=== PATIENT | male | born 1955 | race Caucasian/White ===

== ENCOUNTER 2021-06-26 10:30 | Day surgery (SDC) | payer MEDICARE ==
[2021-06-26] MEDS ORDERED: CEFAZOLIN 2 GM-D5W BAG** 2 GM/50 ML ML IV SCH (11:00)
[2021-06-26] MEDS ORDERED: Lactated Ringers 1,000 ML IV SCH (11:00)
[2021-06-26] MEDS ORDERED: CEFAZOLIN 2 GM-D5W BAG** 2 GM/50 ML ML IV ONE (11:14)
[2021-06-26] MEDS ORDERED: Lactated Ringers 1,000 ML IV ONE ×2 (11:15→14:09)
--- NOTE | 2021-06-26 12:48 | HP ---
DATE OF SURGERY: 06/26/2021 HISTORY OF PRESENT ILLNESS: The patient is a 65-year-old who had a large nodule left ear that has been going on for some time. He is in need of incision and reconstruction of that area. PAST MEDICAL HISTORY: He denied any chronic illnesses. PAST SURGICAL HISTORY: He denied prior surgery. MEDICATIONS: Vitamin B12, fish oil, [place]-3, trazodone. ALLERGIES: DOXYCYCLINE. FAMILY HISTORY: Negative in regards to this problem. SOCIAL HISTORY: Pack per day smoker, denies alcohol abuse. REVIEW OF SYSTEMS: Fourteen systems reviewed. No chest pain or palpitations. Other systems negative or noncontributory as above and per preadmission questionnaire. PHYSICAL EXAMINATION: GENERAL: No acute distress. HEENT: Sclerae nonicteric. Ear has a large lesion on his left ear nonhealing. NECK: No JVD. CHEST: Breath sounds symmetrical. CVS: Regular rate and rhythm. ABDOMEN: Soft. No peritoneal signs. He does have an inguinal hernia but he is not interested in any of repair at this time. EXTREMITIES: No edema. NEURO: Alert. PSYCH: Appropriate mood and affect. IMPRESSION: Enlarging nonhealing ear lesion. He needs excision and biopsy with auriculoplasty and possible skin graft of this nonhealed lesion of left ear of indeterminate behavior. Risks and benefits explained in detail including but not limited to bleeding, infection, risk of nonhealing of the wound possibly requiring other procedure, general risk of anesthesia or sedation but not limited to, consent obtained, will proceed as an outpatient. General risk of anesthesia, deep vein thrombosis, pulmonary embolism or pneumonia but not limited to, possibility of cancer, involved margins possibly requiring other procedures and/or treatments.
[2021-06-26] MEDS ORDERED: DIPRIVAN 200 MG/20 ML IV ONE (13:37)
[2021-06-26] MEDS ORDERED: SUBLIMAZE 100 MCG/2 ML ONE ×2 (13:37→14:53)
[2021-06-26] MEDS ORDERED: Versed 2 MG/2 ML Injection ONE (13:37)
[2021-06-26] MEDS ORDERED: Sensorcaine 0.25% 10 ML ONE (14:09)
[2021-06-26] MEDS ORDERED: Ephedrine Sulfate 50 MG/ML ONE (14:16)
[2021-06-26] MEDS ORDERED: BACIGUENT 30 GM ONE (14:21)
[2021-06-26] MEDS ORDERED: APRESOLINE 20 MG/ML INJ IV ONE (15:43)
[2021-06-26 16:17] VITALS: BP 169/89; PULSE 77; O2SAT 99
--- NOTE | 2021-06-27 07:51 | OP ---
SURGERY DATE/TIME: 06/26/2021 1335 PREOPERATIVE DIAGNOSIS: Nonhealing ulcerated lesion indeterminate behavior left ear. POSTOPERATIVE DIAGNOSIS: Nonhealing ulcerated lesion indeterminate behavior left ear, path pending. PROCEDURE: Excision and biopsy wedge left ear nonhealing indeterminate behavior lesion with reconstruction, complex closure with auriculoplasty. SURGEON: Dr. Rubén Barnhart. ANESTHESIA: General. ESTIMATED BLOOD LOSS: Minimal. INDICATIONS: As noted above. Risks and benefits explained in detail and not limited to and consent obtained. The site had been confirmed in the preoperative holding area. DESCRIPTION OF PROCEDURE AND FINDINGS: The patient is taken to the operating room. General anesthesia introduced. He is prepped and draped in usual sterile fashion. After official time out and no disagreement with planned procedure, marking out to normal appearing skin as he had available in this large lesion left ear. It was felt best to do a wedge-type excision necessary sacrifice a portion of the cartilage. It was not felt that a skin graft would heal on this. Therefore it was carefully excised full thickness and passed off. It measured about 1.5 cm with the margins and passed off for pathology. It was necessary to trim the cartilage in auriculoplasty fashion and the cartilage is brought back together with interrupted 4-0 Vicryl bringing the cartilage back together and the skin trimming the lobe discrepancy in size to match up better. The skin was closed with running interrupted 6-0 and 5-0 Prolene. Good hemostasis noted. Some local was injected posteriorly. Good hemostasis noted. Some antibiotic ointment and sterile dressing applied. The patient tolerated the procedure well. There were no immediate complications. There was no family available to discuss the findings with at this time.
== END 2021-06-26 16:25 | disposition home or self-care (01) ==
LOC: SDC 10:30
PROVIDERS: ATTEND Surgery
DX: D48.5 Neoplasm of uncertain behavior of skin (principal)
CPT/HCPCS: 88305; 88341; 88342; 93005; J0360; J0690; J2250; J2704; J3010; A9270-GY